=== PATIENT | female | born 1990 ===

== ENCOUNTER 2016-11-25 14:34 | Emergency (ER) | payer MEDICAID ==
[2016-11-25 14:58] VITALS: RESP 18; BMI 25.8
[2016-11-25 15:01] VITALS: TEMP 98.7
--- NOTE | 2016-11-25 16:01 | ED PDOC ---
Arrival/HPI - General Historian: Patient - General Chief Complaint: Chest Pain Time Seen by Provider: 11/25/16 15:17 - History of Present Illness Narrative History of Present Illness (Text): 11/25/16 15:58 26 yo F with no PMH, c/o intermittent episodes of chest pain since May and 5 day h/o constant dizziness. Patient reports chest pain described as diffuse intermittent stabbing like pain, occurs nearly every other day, last for 5-10 mins and resolve on its own, radiates to the L arm, is not associated with exertion. Otherwise: (-) diaphoresis, (-) dyspnea, (-) pleuritic component, (- ) ripping or tearing quality, (-) positional component, (-) exertional component , (-) syncope, (-) vomiting, (-) calf swelling/pain, (-) neuro deficits. Patient also reports dizziness with vertigo with nausea. Reports (-) worsening of symptoms with movement of head. Otherwise: (-) lightheadedness, (-) trauma, ( -) headache, (-) tinnitus, (-) hearing loss, (-) fever, (-) diarrhea, (-) GI bleeding. PMD Davidson (Pilo FISHER,Ketty Hernandez) Past Medical History - Provider Review Nursing Documentation Reviewed: Yes - Infectious Disease Hx of Infectious Diseases: None - Reproductive Menopause: No - Pulmonary Hx Respiratory Disorders: Yes - Psychiatric Hx Substance Use: No - Anesthesia Hx Anesthesia: No Hx Anesthesia Reactions: No Hx Malignant Hyperthermia: No Family/Social History - Physician Review Nursing Documentation Reviewed: Yes Family/Social History: Other (high cholesterol) Smoking Status: Never Smoked Hx Alcohol Use: No Hx Substance Use: No Allergies/Home Meds Allergies/Adverse Reactions: Allergies No Known Allergies Allergy (Verified 11/25/16 16:27) Review of Systems - Review of Systems Constitutional: Normal. absent: Fatigue, Weight Change, Fevers Respiratory: Normal. absent: SOB, Cough, Sputum Cardiovascular: Normal, Chest Pain (since May ). absent: Palpitations, Edema Musculoskeletal: Normal. absent: Arthralgias, Back Pain, Neck Pain Skin: Normal. absent: Rash, Pruritis, Skin Lesions Neurological: Normal, Dizziness (x 5 days). absent: Headache, Focal Weakness, Gait Changes Physical Exam - Physical Exam Narrative Physical Exam (Text): 11/25/16 15:57 GENERAL APPEARANCE: Patient is awake, alert, oriented x 3, in no acute distress. SKIN: Warm, dry; (-) cyanosis. HEAD: (-) scalp swelling or tenderness. EYES: (-) conjunctival pallor. ENMT: TMs normal. Mucous membranes moist. NECK: (-) tenderness, (-) stiffness, (-) lymphadenopathy. Carotids: (-) bruit. CHEST AND RESPIRATORY: (-) rales, (-) rhonchi, (-) wheezes; breath sounds equal bilaterally. HEART AND CARDIOVASCULAR: (-) irregularity; (-) murmur, (-) gallop. ABDOMEN AND GI: Soft; (-) distention, (-) tenderness, (-) rebound, (-) guarding , (-) palpable masses, (-) flank tenderness. EXTREMITIES: (-) deformity; (-) edema. Distal pulses: present. NEURO AND PSYCH: Mental status as above. helicopter technician: (+) horizontal nystagmus; Pupils equal & reactive, EOMI, (-) facial asymmetry; (-) dysarthria; tongue and uvula midline. Strength and DTRs symmetric. Gait: normal. (Pilo FISHER,Ketty Hernandez) Vital Signs Temp Pulse Resp BP Pulse Ox 11/25/16 19:28 67 18 124/65 100 11/25/16 15:01 98.7 F 69 18 126/60 98 11/25/16 14:50 98.6 F 83 18 112/74 98 Medical Decision Making ED Course and Treatment: I was available for consultation during PA evaluation. The chart was reviewed by me, and I agree with disposition. The documented history was done by the physician associate professor of automation. The documented physical exam was done by the physician associate professor of automation. The documented procedures were done by the physician associate professor of automation. (Hunter Garcia) 11/25/16 15:56 26 yo F with no PMH, c/o intermittent episodes of chest pain since May and 5 day h/o constant dizziness. Plan: -- Labs -- IV fluids -- Urinalysis -- EKG -- CXR -- Meclizine / Zofran -- Reassess and disposition 11/25/16 20:52 EKG: NSR at 68 bpm, (-) acute ST changes, as read by JASON. CXR : NAD, as read by PA Lab results reviewed, K 3.5, rest of the labs are wnl. CT head shows no acute findings. Diagnostic results discussed with the patient in great detail. On reevaluation, patient reports mild improvement of her dizziness, denies any nausea, headache, chest pain, shortness of breath or any other complaints at this time. On exam, patient is sitting up comfortably in bed in no acute distress, repeat neuro exam shows no acute findings. Patient was able to get up out of bed, and ambulate with no assistance with a steady gait. Patient advised that she will need to follow up with her PMD in 2 days without fail for further evaluation. Referral to cardiology and neurology provided to the patient as well as a prescription for meclizine, advised to take as needed for her symptoms. Patient states she fully agrees with and understands discharge instructions. States that she agrees with the plan and disposition. Verbalized and repeated discharge instructions and plan. I have given the patient opportunity to ask any additional questions. (Pilo FISHER,Ketty Hernandez) - Lab Interpretations Lab Results: 11/25/16 16:54 11/25/16 16:54 Lab Results 11/25/16 16:54: Sodium 141, Potassium 3.5 L, Chloride 109 H, Carbon Dioxide 24, Anion Gap 12, BUN 9, Creatinine 0.6, Est GFR ( Amer) > 60, Est GFR (Non- Af Amer) > 60, Random Glucose 87, Calcium 9.3, Magnesium 1.9, Total Bilirubin 0.4, AST 21, ALT 21, Alkaline Phosphatase 103, Lactate Dehydrogenase 306 L, Total Creatine Kinase 43, Troponin I < 0.01, Total Protein 7.5, Albumin 4.2, Globulin 3.3, Albumin/Globulin Ratio 1.3 11/25/16 16:54: Urine Color Yellow, Urine Appearance Clear, Urine pH 7.5, Ur Specific [place] 1.020, Urine Protein Negative, Urine Glucose (UA) Negative, Urine Ketones Negative, Urine Blood Negative, Urine Nitrate Negative, Urine Bilirubin Negative, Urine Urobilinogen 0.2, Ur Leukocyte Esterase Negative 11/25/16 16:54: WBC 9.5, RBC 4.72, Hgb 13.1, Hct 38.1, MCV 80.7, MCH 27.8, MCHC 34.4, RDW 12.7, Plt Count 278, MPV 9.6, Gran % 56.3, Lymph % (Auto) 34.0, [place] % (Auto) 6.3 H, Eos % (Auto) 3.2, Baso % (Auto) 0.2, Gran # 5.35, Lymph # 3.2, [place] # 0.6, Eos # 0.3, Baso # 0.02 - RAD Interpretation Narrative RAD Interpretations (Text): 11/25/16 20:51 CT head w/o contrast: no acute intracranial abnormalities. No significant findings to account for the clinical presentation. Read by Dr. Javier Perry ( Pilo FISHER,Ketty Hernandez) Radiology Orders: 11/25/16 16:48 CHEST TWO VIEWS (PA/LAT) [RAD] Stat 11/25/16 16:49 HEAD W/O CONTRAST [CT] Stat - Medication Orders Current Medication Orders: Discontinued Medications Sodium Chloride (Sodium Chloride 0.9%) 1,000 mls @ 1,000 mls/hr IV .Q1H STA Stop: 11/25/16 17:48 Last Admin: 11/25/16 16:54 Dose: 1,000 mls/hr Meclizine HCl (Antivert) 25 mg PO STAT STA Stop: 11/25/16 16:50 Last Admin: 11/25/16 16:55 Dose: 25 mg Ondansetron HCl (Zofran Inj) 4 mg IVP STAT STA Stop: 11/25/16 16:51 Last Admin: 11/25/16 16:55 Dose: 4 mg Potassium Chloride (Potassium Chloride Oral Soln) 40 meq PO STAT STA Stop: 11/25/16 19:13 Last Admin: 11/25/16 19:45 Dose: 40 meq - PA / DIESEL FLEET MECHANIC / Resident Statement MD/DO has reviewed & agrees with the documentation as recorded. Disposition/Present on Arrival - Present on Arrival Any Indicators Present on Arrival: No History of DVT/PE: No History of Uncontrolled Diabetes: No Urinary Catheter: No History of Decub. Ulcer: No History Surgical Site Infection Following: None - Disposition Have Diagnosis and Disposition been Completed?: Yes Disposition Time: 19:00 Patient Plan: Discharge - Disposition Diagnosis: Dizziness, Chest pain Disposition: HOME/ ROUTINE Condition: STABLE Discharge Instructions (ExitCare): Chest Pain (ED), Vertigo (ED), Dizziness (ED ) Print Language: VIET[place]ESE Additional Instructions: Thank you for letting us take care of you today. You were treated for dizziness , likely vertigo, chest pain. The emergency medical care you received today was directed at your acute symptoms. If you were prescribed any medication, please fill it and take as directed. It may take several days for your symptoms to resolve. Return to the Emergency Department if your symptoms worsen, do not improve, or if you have any other problems. Please contact your doctor in 2 days for re-evaluation and follow up / or call one of the physicians/clinics you have been referred to that are listed on the Patient Visit Information form that is included in your discharge packet. Bring any paperwork you were given at discharge with you along with any medications you are taking to your follow up visit. Our treatment cannot replace ongoing medical care by a primary care provider (PCP) outside of the emergency department. Thank you for allowing the [facility] team to be part of your care today. Prescriptions: Meclizine [Meclizine*] 25 mg PO Q6 PRN #20 tab PRN Reason: Dizziness Ondansetron ODT [Zofran ODT] 4 mg PO DAILY PRN #20 odt PRN Reason: Nausea/Vomiting Referrals: Alexsandra Adame MD [Primary Care Provider] - Follow up with primary Sourav Dockery MD [Staff Provider] - Follow up with primary Mariluz Lorenzana MD [Staff Provider] - Follow up with primary Forms: WORK NOTE
[2016-11-25] MEDS ORDERED: Sodium Chloride 0.9% 1,000 ML IV STA (16:49)
[2016-11-25 17:01] LABS: BASO # 0.02 K/mm3 (0.0-2.0); BASO % 0.2 % (0.0-3.0); EOS # 0.3 (0.0-0.7); EOS % 3.2 % (1.5-5.0); GRAN # 5.35 (1.4-6.5); GRAN % 56.3 % (50.0-68.0); HEMOGLOBIN 13.1 gm/dL (12.0-16.0); LYMPH # 3.2 (1.2-3.4); MEAN CELL VOLUME 80.7 fL (80.0-105.0); MEAN CORPUSCULAR HEMOGLOBIN 27.8 pg (25.0-35.0); MEAN CORPUSCULAR HGB CONC 34.4 g/dl (31.0-37.0); MEAN PLATELET VOLUME 9.6 fl (7.0-11.0); MONO # 0.6 (0.1-0.6); MONO % 6.3 % (1.0-6.0); PLATELET COUNT 278 10^3/uL (120.0-450.0); RBC 4.72 10^6/uL (3.5-6.1); RED CELL DISTRIBUTION WIDTH 12.7 % (11.5-14.5); WHITE BLOOD COUNT 9.5 10^3/ul (4.5-11.0)
[2016-11-25 17:05] LABS: PH,URINE 7.5 (4.7-8.0); URINE BILIRUBIN NEGATIVE (NEGATIVE); URINE BLOOD NEGATIVE (NEGATIVE); URINE GLUCOSE (UA) NEGATIVE (NEGATIVE); URINE LEUKOCYTE ESTERASE NEGATIVE Leu/uL (NEGATIVE); URINE NITRATE NEGATIVE (NEGATIVE); URINE PROTEIN NEGATIVE mg/dL (<30 mg/dL); URINE UROBILINOGEN 0.2 E.U./dL (<1 E.U./dL)
[2016-11-25 17:11] LABS: URINE APPEARANCE CLEAR (CLEAR); URINE COLOR YELLOW (YELLOW)
[2016-11-25 17:16] LABS: ALB/GLOB RATIO 1.3 (1.1-1.8); ALBUMIN 4.2 g/dL (3.0-4.8); ALT/SGPT 21 U/L (7-56); AST/SGOT 21 U/L (15-39); BLOOD UREA NITROGEN 9 mg/dL (7-21); CALCIUM 9.3 mg/dL (8.4-10.5); GFR AFRICAN-AMERICAN > 60; GFR NON-AFRICAN AMERICAN > 60; MAGNESIUM 1.9 mg/dL (1.7-2.2)
[2016-11-25 17:27] LABS: TROPONIN I < 0.01 ng/mL
--- NOTE | 2016-11-25 18:29 | CT ---
PROCEDURE: CT HEAD WITHOUT CONTRAST. HISTORY: dizziness COMPARISON: None available. TECHNIQUE: Axial computed tomography images were obtained through the head/brain without intravenous contrast. Radiation dose: Total exam DLP = 725.84 mGy-cm. This CT exam was performed using one or more of the following dose reduction techniques: Automated exposure control, adjustment of the mA and/or kV according to patient size, and/or use of iterative reconstruction technique. FINDINGS: HEMORRHAGE: No intracranial hemorrhage. BRAIN: No mass effect or edema. No atrophy or chronic microvascular ischemic changes. VENTRICLES: Unremarkable. No hydrocephalus. CALVARIUM: Unremarkable. PARANASAL SINUSES: Unremarkable as visualized. No significant inflammatory changes. MASTOID AIR CELLS: Unremarkable as visualized. No inflammatory changes. OTHER FINDINGS: None. IMPRESSION: No acute intracranial abnormalities. No significant findings to account for the clinical presentation.
[2016-11-25] MEDS ORDERED: Potassium Chloride 20 mEq/15 ml LIQ UD PO STA (19:12)
[2016-11-25 19:28] VITALS: BP 124/65; PULSE 67; O2SAT 100
--- NOTE | 2016-11-26 08:52 | CARD ---
APPROVED REPORT EKG Measurement Heart [id number] <Conclusion> Normal sinus rhythm Normal ECG
--- NOTE | 2016-11-26 10:16 | RAD ---
HISTORY: chest pain COMPARISON: No prior. TECHNIQUE: Chest PA and lateral FINDINGS: LUNGS: No active pulmonary disease. PLEURA: No significant pleural effusion identified. No pneumothorax apparent. CARDIOVASCULAR: Normal. OSSEOUS STRUCTURES: No significant abnormalities. VISUALIZED UPPER ABDOMEN: Normal. OTHER FINDINGS: None. IMPRESSION: No active disease.
== END 2016-11-25 19:54 | disposition home or self-care (01) ==
LOC: ED 14:34
DX: R07.9 Chest pain, unspecified (principal); R42 Dizziness and giddiness
CPT/HCPCS: 70450; 71020; 80053; 81003; 82550; 83615; 83735; 84484; 85025; 87086; 93005; 96374; 99283; J2405; J7040